=== PATIENT | male | born 1965 | race Two or more races ===

== ENCOUNTER 2024-12-19 12:11 | Emergency (ER) | payer BC, MEDICAID ==
[~2024-12-19] VITALS: Ht 165.1 cm; Wt 66.7 kg
[2024-12-19] MEDS ORDERED: LIDOCAINE 0.5%-EPI 1:200,000 50 ML VIAL ONE (12:29)
[2024-12-19] MEDS ORDERED: ONDANSETRON HCL/PF 4 MG/2 ML VIAL ONE (12:35)
[2024-12-19] MEDS ORDERED: MORPHINE SULFATE INJ 4 MG/ML DISP.SYRIN ONE (12:35)
[2024-12-19] MEDS ORDERED: TDAP [DIPH/PERTUSSIS/TET] 0.5 ML VIAL IM ONE (12:36)
[2024-12-19 12:47] LABS: BASOPHILS # (AUTO) 0.1 K/uL (0.0-0.2); EOSINOPHILS # (AUTO) 0.2 K/uL (0.0-0.7); EOSINOPHILS % (AUTO) 2.4 % (0.0-6.0); HEMATOCRIT 40 % (39-51); HEMOGLOBIN 13.4 g/dL (13.5-17.5); LYMPHOCYTES # (AUTO) 1.8 K/uL (0.8-4.8); LYMPHOCYTES % (AUTO) 26.2 % (20.0-44.0); MEAN CORPUSCULAR HEMOGLOBIN 29 PG (26.0-33.0); MEAN CORPUSCULAR HGB CONC 34 g/dl (31.0-36.0); MEAN CORPUSCULAR VOLUME 87 fL (80-96); MONOCYTES # (AUTO) 0.4 K/uL (0.1-1.30); MONOCYTES % (AUTO) 5.8 % (2.0-12.0); NEUTROPHILS # (AUTO) 4.3 K/uL (1.8-8.9); NEUTROPHILS % (AUTO) 64.6 % (43.0-81.0); PLATELET COUNT (AUTO) 236 K/uL (150-450); RED CELL DISTRIBUTION WIDTH 13.5 % (11.5-15.0); WHITE BLOOD COUNT (AUTO) 6.7 K/uL (4.3-11.0)
[2024-12-19] MEDS: TDAP [DIPH/PERTUSSIS/TET] 0.5 ML VIAL IM ONE (12:49)
[2024-12-19] MEDS: ONDANSETRON HCL/PF 4 MG/2 ML VIAL IVP ONE (12:50)
[2024-12-19] MEDS: MORPHINE SULFATE INJ 2 MG/ML DISP.SYRIN IV ONE (12:50)
[2024-12-19] MEDS: LIDOCAINE 1%-EPI 1:100,000 50 ML VIAL IJ ONE (12:54)
[2024-12-19 12:58] LABS: CALCIUM, SERUM 8.8 mg/dL (8.5-10.1); CREATININE 1.3 mg/dL (0.6-1.3); POTASSIUM 3.6 mmol/L (3.5-5.1)
[2024-12-19] MEDS: CEFAZOLIN 1 GM in IV D5W 50 ML IV ONE (13:05)
[2024-12-19] MEDS ORDERED: KETOROLAC TROMETHAMINE 15 MG/ML VIAL ONE (13:29)
[2024-12-19] MEDS: KETOROLAC TROMETHAMINE 15 MG/ML VIAL IM ONE (13:35)
[2024-12-19] MEDS ORDERED: CEPH-570 PO (14:30)
[2024-12-19 15:22] VITALS: BP 124/72; TEMP 97.8; O2SAT 100
[2024-12-19] MEDS ORDERED: CEPH500C2 PO (15:22)
== END 2024-12-19 15:23 | disposition home or self-care (01) ==
LOC: ER 12:15
DX: S81.812A Laceration without foreign body, left lower leg, initial encounter (principal); W01.0XXA Fall on same level from slipping, tripping and stumbling without subsequent striking against object, initial encounter; Y93.89 Activity, other specified; Y92.89 Other specified places as the place of occurrence of the external cause; Y99.8 Other external cause status
CPT/HCPCS: 12002; 36415; 73564; 73590; 80048; 85025; 90471; 90715; 96365; 96372; 99284; A6403; J0690; J1885; J3490; J7060; J2270; J2405

== ENCOUNTER 2024-12-25 20:01 | Emergency (ER) | payer BC ==
[~2024-12-25] VITALS: Ht 165.1 cm; Wt 66.7 kg
[~2024-12-25 20:01] MED LIST: CEPH-570 PO; CEPH500C2 PO
[2024-12-25 22:05] LABS: BASOPHILS # (AUTO) 0.1 K/uL (0.0-0.2); BASOPHILS % (AUTO) 0.9 % (0.0-2.0); EOSINOPHILS # (AUTO) 0.3 K/uL (0.0-0.7); EOSINOPHILS % (AUTO) 5.3 % (0.0-6.0); HEMATOCRIT 38 % (39-51); HEMOGLOBIN 12.6 g/dL (13.5-17.5); LYMPHOCYTES # (AUTO) 1.7 K/uL (0.8-4.8); MEAN CORPUSCULAR HEMOGLOBIN 29 PG (26.0-33.0); MEAN CORPUSCULAR HGB CONC 33 g/dl (31.0-36.0); MEAN CORPUSCULAR VOLUME 88 fL (80-96); MONOCYTES # (AUTO) 0.5 K/uL (0.1-1.30); MONOCYTES % (AUTO) 8.3 % (2.0-12.0); NEUTROPHILS # (AUTO) 3.8 K/uL (1.8-8.9); NEUTROPHILS % (AUTO) 59.5 % (43.0-81.0); PLATELET COUNT (AUTO) 287 K/uL (150-450); RED BLOOD CELL COUNT(AUTO) 4.36 MIL/uL (4.5-6.0); RED CELL DISTRIBUTION WIDTH 13.4 % (11.5-15.0); WHITE BLOOD COUNT (AUTO) 6.4 K/uL (4.3-11.0)
[2024-12-25 22:12] LABS: CALCIUM, SERUM 9.1 mg/dL (8.5-10.1); CREATININE 1.2 mg/dL (0.6-1.3); POTASSIUM 3.8 mmol/L (3.5-5.1)
[2024-12-25] MEDS ORDERED: SULF1TAB48 PO (23:58)
[2024-12-26] MEDS ORDERED: SULFAMETH/TRIMETH 800/160 MG 1 UDTAB TABLET ONE (00:03)
[2024-12-26] MEDS: SULFAMETH/TRIMETH 800/160 MG 1 UDTAB TABLET PO ONE (00:07)
[2024-12-26 00:15] VITALS: BP 122/78; TEMP 98.2; O2SAT 98
== END 2024-12-26 00:20 | disposition home or self-care (01) ==
LOC: ER 20:06
DX: M79.605 Pain in left leg (principal); M79.89 Other specified soft tissue disorders; E03.9 Hypothyroidism, unspecified; Z79.899 Other long term (current) drug therapy
CPT/HCPCS: 36415; 80048-TC; 85025-TC; 93971-TC